=== PATIENT | male | born 1985 | race Caucasian/White ===

== ENCOUNTER 2016-11-23 10:50 | Emergency (ER) | payer SELFPAY ==
--- NOTE | 2016-11-23 11:14 | ER Document Report ---
ED Psych Disorder / Suicide - General Mode of Arrival: Medic Information source: Patient, Law Enforcement TRAVEL OUTSIDE OF THE [place] IN LAST 30 DAYS: No - HPI Patient complains to provider of: Bizarre behavior Associated symptoms: Other - See above <JESSICA ANDERSON - Last Filed: 11/23/16 11:43> <LELA MARQUES - Last Filed: 11/23/16 20:13> <ADAM CHAIDEZ - Last Filed: 11/25/16 12:34> - General Chief Complaint: hallucinations Stated Complaint: PSYCH EVAL Notes: Patient is a 31 year old male who presents to the emergency department with law enforcement for psych evaluation. Patient was found running through a parking lot naked and reported having been smoking crack for the past 4 days. Patient is in 4 point restraints in room and has been spitting on people. During exam patient makes provocative statements about his genitalia and is uncooperative in answering questions. (JESSICA ANDERSON) - Related Data Allergies/Adverse Reactions: No Known Allergies Allergy (Unverified 11/23/16 16:19) Past Medical History - General Information source: Emergency Med Personnel Cannot obtain history due to: Uncooperative - Social History Smoking Status: Unknown if Ever Smoked Drug Abuse: Cocaine Family History: Reviewed & Not Pertinent Patient has suicidal ideation: Yes Patient has homicidal ideation: Yes <JESSICA ANDERSON - Last Filed: 11/23/16 11:43> Review of Systems - Review of Systems -: Yes ROS unobtainable due to patient's medical condition <JESSICA ANDERSON - Last Filed: 11/23/16 11:43> Physical Exam - Vital signs Interpretation: Normal - General General appearance: Appears well, Alert, Combative - refuses to answer questions - HEENT Head: Normocephalic, Atraumatic Eyes: Other - Purposely rolls eyes back when lids forced open - Respiratory Respiratory status: No respiratory distress Chest status: Nontender Breath sounds: Normal Chest palpation: Normal - Cardiovascular Rhythm: Regular Heart sounds: Normal auscultation Murmur: No - Abdominal Inspection: Normal Distension: No distension Bowel sounds: Normal Tenderness: Nontender Organomegaly: No organomegaly - Extremities General upper extremity: Normal inspection General lower extremity: Normal inspection - Neurological Neuro grossly intact: Yes Speech: Normal - Psychological Associated symptoms: Uncooperative - Skin Skin Temperature: Warm Skin Moisture: Dry Skin Color: Normal <JESSICA ANDERSON - Last Filed: 11/23/16 11:43> Course - Laboratory Result Diagrams: 11/23/16 11:35 11/23/16 11:35 <JESSICA ANDERSON - Last Filed: 11/23/16 11:43> - Laboratory Result Diagrams: 11/23/16 11:35 11/23/16 11:35 - EKG Interpretation by [facility] EKG shows normal: Sinus rhythm, [place], Intervals, QRS Complexes. abnormal: ST-T Waves - ST elevation, probable normal early repolarization pattern Rate: Normal - 84 Rhythm: NSR <LELA MARQUES - Last Filed: 11/23/16 20:13> - Laboratory Result Diagrams: 11/23/16 11:35 11/23/16 11:35 <ADAM CHAIDEZ - Last Filed: 11/25/16 12:34> - Vital Signs Vital signs: Temp Pulse Resp BP Pulse Ox 97.6 F 72 18 138/84 H 100 11/25/16 06:30 11/25/16 06:30 11/25/16 06:33 11/25/16 06:30 11/25/16 06:30 (JESSICA ANDERSON) (LELA MARQUES) (ADAM CHAIDEZ) - Laboratory Laboratory results interpreted by co: 11/23/16 11/23/16 11/23/16 11:35 11:35 21:20 Carbon Dioxide 21 L BUN 26 H Glucose 135 H Creatine Kinase 251 H Urine Protein 30 H Urine Ketones 20 H Urine Ascorbic Acid 40 H Salicylates < 1.0 L Acetaminophen < 10 L (ADAM CHAIDEZ) Discharge <JESSICA ANDERSON - Last Filed: 11/23/16 11:43> <LELA MARQUES - Last Filed: 11/23/16 20:13> <ADAM CHAIDEZ - Last Filed: 11/25/16 12:34> - Discharge Clinical Impression: Acute psychosis Condition: Stable Disposition: HOME, SELF-CARE Additional Instructions: Bipolar Disorder Bipolar disorder is also called manic-depressive disorder. Depression alternates with brain hyperactivity called jennifer. Each phase lasts from several days to a few weeks. We don't know exactly what causes bipolar disorder , but it's treatable. During the "manic phase," you may feel elated and energetic. You may have racing thoughts, rapid speech, increased activity, and grandiose ideas. During this time, you may not realize how poor your judgement is. Inappropriate spending, drug abuse, excessive alcohol use, marriage problems, and irresponsible sexual behavior are common during the manic phase. During the "depressive phase," you might feel depressed, guilty, worthless , fatigued, and unable to concentrate. You might have thoughts of suicide. Good treatments are available for bipolar disorder. [place] is a classic drug for bipolar disorder, and is still often useful. If the manic phase is very mild, an antidepressant alone can be prescribed. If the manic phase is very severe, an antipsychotic medicine (such as Haldol) may be needed. The treatment must be matched to your symptoms, so it's important to work closely with your psychiatric care provider. Contact your physician, the hospital emergency center, crisis line, or your counsellor if you are losing control or having self-destructive thoughts. FOLLOW-UP CARE: If you have been referred to a physician for follow-up care, call the physician s office for an appointment as you were instructed or within the next two days. If you experience worsening or a significant change in your symptoms, notify the physician immediately or return to the Emergency Department at any time for re-evaluation. We are recommending that she follow up at [facility] on November 30. Prescriptions: Benztropine Mesylate [Cogentin 1 mg Tablet] 1 tab PO DAILY #5 tab Divalproex Sodium [Depakote ER 500 mg Tab.sr] 500 mg PO BID #10 tab.sr.24h Olanzapine [Zyprexa 5 mg Tablet] 5 mg PO BID #10 tablet Scribe Attestation: 11/23/16 20:14 I personally performed the services described in the documentation, reviewed and edited the documentation which was dictated to the scribe in my presence, and it accurately records my words and actions. (LELA MARQUES) Scribe Documentation - Scribe Written by Karan:: Karan Ramirez, 11/23/16, 11:49 acting as scribe for :: Brannon <JESSICA ANDERSON - Last Filed: 11/23/16 11:43>
[2016-11-23] MEDS ORDERED: ZIPRASIDONE MESYLATE INJ/PF 20 MG SDV IM ONE (11:38)
[2016-11-23] MEDS ORDERED: BENZTROPINE MESYLATE INJ 2 MG/2 ML AMPULE IM STA (11:38)
[2016-11-23 11:53] LABS: ABSOLUTE LYMPHOCYTES (AUTO) 1.3 10^3/uL (0.5-4.7); ABSOLUTE MONOCYTES (AUTO) 0.8 10^3/uL (0.1-1.4); ABSOLUTE NEUT (AUTO) 6.9 10^3/uL (1.7-8.2); BASOPHILS % (AUTO) 0.2 % (0-2); HEMATOCRIT 44.4 % (37.9-51.0); HEMOGLOBIN 15.2 g/dL (13.5-17.0); HGB HCT DIFFERENCE 1.2; LYMPHOCYTES % (AUTO) 14.5 % (13-45); MEAN CORPUSCULAR HEMOGLOBIN 29.3 pg (27.0-33.4); MEAN CORPUSCULAR HGB CONC 34.3 g/dL (32.0-36.0); MEAN CORPUSCULAR VOLUME 85 fl (80-97); MONOCYTES % (AUTO) 8.9 % (3-13); RED CELL DISTRIBUTION WIDTH 12.5 % (11.5-14.0); SEGMENTED NEUTROPHILS % (AUTO) 76.4 % (42-78)
[2016-11-23 12:12] LABS: ALANINE AMINOTRANSFERASE 46 U/L (21-72); ALBUMIN 4.6 g/dL (3.5-5.0); ALKALINE PHOSPHATASE 63 U/L (38-126); ANION GAP 18 (5-19); ASPARTATE AMINO TRANSFERASE 35 U/L (17-59); BILIRUBIN,TOTAL 0.9 mg/dL (0.2-1.3); BLOOD UREA NITROGEN 26 mg/dL (7-20); CARBON DIOXIDE 21 mmol/L (22-30); CHLORIDE 104 mmol/L (98-107); CREATININE RESULT 0.98 mg/dL (0.52-1.25); GLUCOSE 135 mg/dL (75-110); POTASSIUM 3.8 mmol/L (3.6-5.0); SODIUM 142.9 mmol/L (137-145); TOTAL PROTEIN 7.1 g/dL (6.3-8.2)
[2016-11-23 12:17] LABS: ALCOHOL < 10 mg/dL (NONE DETECTED)
--- NOTE | 2016-11-23 12:23 | EKG REPORT ---
SEVERITY:- NORMAL ECG - SINUS RHYTHM ST ELEV, PROBABLE NORMAL EARLY REPOL PATTERN : Confirmed by: Rg Jamison 23-Nov-2016 12:23:34
--- NOTE | 2016-11-23 12:33 | PSYCHOLOGICAL NOTE ---
Psych Note - Psych Note Psych Note: Patient is a 31 year old male who presents via [facility] after he was reportedly running through a street/parkinglot without any clothes. Patient was agitated upon arrival and immediately placed in 4pt restraints for his safety, and was also spitting on others. Patient was mostly uncooperative during attempt at evaluation. [facility] reported patient was allegedly abusing crack cocaine x4 days. Will attempt consult at a later time. Discussed plan of care with ED MD, who is in agreement the patient should be placed on an IVC for his safety and the safety of others. Will follow.
[2016-11-23 19:36] LABS: ADD ON TESTING BLD IN LAB ACKNOWLEDGE
[2016-11-23 20:00] LABS: CREATINE KINASE 251 U/L (55-170)
[2016-11-23 22:16] LABS: APPEARANCE,URINE TURBID; BILIRUBIN,URINE NEGATIVE (NEGATIVE); GLUCOSE, URINE NEGATIVE (NEGATIVE); KETONES,URINE 20 mg/dL (NEGATIVE); LEUKOCYTE ESTERASE,URINE NEGATIVE (NEGATIVE); NITRITE,URINE NEGATIVE (NEGATIVE); PROTEIN,URINE 30 mg/dL (NEGATIVE); UROBILINOGEN,URINE NEGATIVE mg/dL (<2.0)
[2016-11-23 22:24] LABS: URINE BARBITURATES SCREEN NEGATIVE; URINE METHADONE SCREEN NEGATIVE; URINE PHENCYCLIDINE SCREEN NEGATIVE
--- NOTE | 2016-11-24 10:17 | ER Document Report ---
Doctor's Note Notes: 11/24/16 10:16 Rounds: Chart reviewed and patient interviewed. Patient reportedly has been using crack, running naked in a parking lot and had to be restrained and was spitting at staff and others. Vital signs are all normal. Lab studies were essentially normal except for being positive for marijuana on his drug screen, no cocaine noted. Also, his CPK level was 251. Patient received 1 dose of Geodon. This morning, patient is a not very pleasant and doesn't carry on a conversation well and seems to have very bad attitude about being here in the emergency department. Doesn't appear to wish to talk to me. Denies significant past medical history. She appears to be medically stable for transfer or discharge. Tegan Maria M.D.
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
[2016-11-24] MEDS ORDERED: BENZTROPINE MESYLATE 1 MG TABLET PO SCH (17:15)
[2016-11-24] MEDS: OLANZAPINE 5 MG TABLET PO SCH (18:10)
[2016-11-24] MEDS: DIVALPROEX SODIUM 500 MG TAB.SR.24H PO SCH (18:10)
[2016-11-25] MEDS: DIVALPROEX SODIUM 500 MG TAB.SR.24H PO SCH (10:19)
[2016-11-25] MEDS: OLANZAPINE 5 MG TABLET PO SCH (10:19)
--- NOTE | 2016-11-25 10:52 | ER Document Report ---
Doctor's Note Notes: 11/25/16 10:51 Rounds: Chart reviewed and patient interviewed. Patient acts much better today. Says he feels a lot better since he got some sleep. He is calm and cooperative and pleasant to talk to. Vital signs are all normal. Only lab studies slightly elevated was his CPK, probably related to his physical, muscular activity when he was brought in to the emergency department. Patient appears to be medically stable for transfer or discharge. Have spoken with mental health and it's likely we will discharge this patient today. Tegan Maria M.D.
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
[2016-11-25 18:17] VITALS: BP 106/76
== END 2016-11-25 13:00 | disposition home or self-care (01) ==
LOC: ER 10:50
DX: F23 Brief psychotic disorder (principal); F31.9 Bipolar disorder, unspecified; Z78.1 Physical restraint status
CPT/HCPCS: 93005; 99285; 96372; 36415; 82550; 85025; 80053; 81001; 84484; 73630; 93010; G0479 ×4; J0515; J3486; 80307